=== PATIENT | female | born 1960 | race Asian ===

== ENCOUNTER → 2016-12-08 | Outpatient (CLI) | payer BC ==
[~2016-12-08] MED LIST: ACET-2178 PO; ALBU18HF2 IH; LOSA1TAB34 PO; LOVA40TA73 PO; METF500T PO; METF500T4 PO
[2016-12-08 06:52] LABS: BASOPHILS % 1.2 % (0.0-2.0); EOSINOPHILS % 9.9 % (0.0-5.0); LYMPHOCYTES % 21.1 % (20.0-50.0); MEAN CORPUSCULAR HEMOGLOBIN 27.2 pg (28.0-32.0); MEAN CORPUSCULAR VOLUME 81.7 fL (81.0-99.0); MEAN PLATELET VOLUME 7.9 fl (7.4-10.4); MONOCYTES % 10.6 % (2.0-8.0); NEUTROPHILS % 57.2 % (40.0-76.0); PLATELET 278 x1000/uL (130-400); RED BLOOD CELL COUNT 5.15 mill/uL (4.2-5.4); RED CELL DISTRIBUTION WIDTH 15.1 % (11.6-14.6)
[2016-12-08 07:03] LABS: CARBON DIOXIDE 30 mEq/L (21-32); CHLORIDE 105 mEq/L (98-107); HDL CHOLESTEROL 37 mg/dL (40-59); LDL CHOLESTEROL 103 mg/dL (5-100); T4 FREE 1.14 ng/dL (0.76-1.46)
[2016-12-09 13:11] LABS: *CREATININE RANDOM URINE 100.3 mg/dL (Not Estab.); MICROALBUMIN RANDOM URINE 46.6 ug/mL (Not Estab.)
== END | disposition home or self-care (01) ==
LOC: LAB 06:02
PROVIDERS: ATTEND Family Medicine
DX: Z00.01 Encounter for general adult medical examination with abnormal findings (principal); R79.89 Other specified abnormal findings of blood chemistry
CPT/HCPCS: 36415; 80053; 80061; 82043; 82570; 83036; 84439; 84443; 84481; 85025; 85651

== ENCOUNTER → 2016-12-29 | Outpatient (CLI) | payer BC | END | disposition home or self-care (01) | LOC: US 13:06 | PROVIDERS: ATTEND Family Medicine | DX: R59.1 Generalized enlarged lymph nodes (principal) | CPT/HCPCS: 76536 ==

== ENCOUNTER → 2017-01-08 | Outpatient (CLI) | payer BC | END | disposition home or self-care (01) | LOC: MAMMO 08:14 | PROVIDERS: ATTEND Family Medicine | DX: Z12.31 Encounter for screening mammogram for malignant neoplasm of breast (principal) | CPT/HCPCS: G0202 ==

== ENCOUNTER 2017-02-26 11:25 | Inpatient (IN) | payer BC ==
[~2017-02-26] VITALS: Ht 160 cm; Wt 74.6 kg
[2017-02-26] VITALS (10 sets, daily range): BP systolic 128–175; BP diastolic 71–95
[~2017-02-26 11:25] MED LIST changes: -ACET-2178 PO; -ALBU18HF2 IH; +IOHEXOL-350 100 ML BOTTLE ONE; -LOSA1TAB34 PO; -LOVA40TA73 PO; -METF500T PO; -METF500T4 PO; +SODIUM CHLORIDE 0.9% 10ML VIAL ONE
[2017-02-26] MEDS ORDERED: NITROGLYCERIN 0.4MG TABLET SL SL ONE (11:45)
[2017-02-26] MEDS ORDERED: ASPIRIN 81MG TABLET PO ONE (11:45)
[2017-02-26 11:55] LABS: HEMATOCRIT. 41.5 % (36.0-48.0); HEMOGLOBIN. 13.9 g/dL (12.0-16.0); MEAN CORPUSCULAR HEMOGLOBIN 26.8 pg (28.0-32.0); MEAN CORPUSCULAR VOLUME 80.2 fL (81.0-99.0); MEAN PLATELET VOLUME 7.3 fl (7.4-10.4); PLATELET 420 x1000/uL (130-400); RED BLOOD CELL COUNT 5.17 mill/uL (4.2-5.4); RED CELL DISTRIBUTION WIDTH 14.8 % (11.6-14.6)
[2017-02-26 12:05] LABS: D-DIMER 0.95 mg/L FEU (<0.50); PROTHROMBIN TIME 10.6 sec (9.4-11.6)
[2017-02-26 12:06] LABS: CARBON DIOXIDE 29 mEq/L (21-32); CHLORIDE 100 mEq/L (98-107)
[2017-02-26 12:12] LABS: TROPONIN I < 0.02 ng/mL (0.00-0.04)
[2017-02-26 12:22] LABS: PLATELET ESTIMATE INCREASED
[2017-02-26] MEDS ORDERED: SODIUM CHLORIDE 0.9% 1,000 ML IV SCH (13:41)
[2017-02-26] MEDS ORDERED: LOVA40TA73 PO (16:14)
[2017-02-26] MEDS ORDERED: METF500T PO (16:14)
[2017-02-26] MEDS ORDERED: LOSA1TAB34 PO (16:14)
[2017-02-26] MEDS ORDERED: DOCUSATE SODIUM 100MG CAPSULE PO PRN (16:15)
[2017-02-26] MEDS ORDERED: IPRATROPIUM/ALBUTEROL 0.5-3(2.5)MG/3ML NEB INH PRN (16:15)
[2017-02-26] MEDS ORDERED: ONDANSETRON HCL 4MG/2ML VIAL IV PRN (16:15)
[2017-02-26] MEDS: BLOOD SUGAR DIAGNOSTIC STRIP TEST SCH ×2 (16:45→21:10)
[2017-02-26] MEDS: INSULIN LISPRO 100 UNITS/ML SUBCUT SCH ×2 (16:45→21:00)
[2017-02-26] MEDS ORDERED: DEXTROSE 50% WATER 50ML SYRINGE IV PRN (16:45)
[2017-02-27] VITALS (20 sets, daily range): BP systolic 111–163; BP diastolic 53–97
[2017-02-27] MEDS: BLOOD SUGAR DIAGNOSTIC STRIP TEST SCH ×4 (05:52→22:00)
[2017-02-27] MEDS ORDERED: NORMAL SALINE 0.9% 10 ML SYR ONE (06:47)
[2017-02-27] MEDS ORDERED: BUPIVACAINE HCL 0.5% (5MG/ML) 50ML ONE (06:47)
[2017-02-27] MEDS ORDERED: BACITRACIN ZINC 15GM TUBE TOP ONE (06:47)
[2017-02-27] MEDS ORDERED: SKIN ADHESIVE 0.7 GM EA TOP ONE (06:48)
[2017-02-27] MEDS ORDERED: BACITRACIN 50,000 UNITS/VIAL ONE (06:48)
[2017-02-27] MEDS: INSULIN LISPRO 100 UNITS/ML SUBCUT SCH ×5 (06:53→22:02)
[2017-02-27] MEDS ORDERED: MIDAZOLAM HCL 2 MG/2 ML VIAL ONE (07:17)
[2017-02-27 07:19] LABS: CARBON DIOXIDE 28 mEq/L (21-32); CHLORIDE 104 mEq/L (98-107); HDL CHOLESTEROL 37 mg/dL (40-59); LDL CHOLESTEROL 78 mg/dL (5-100)
[2017-02-27] MEDS ORDERED: PROPOFOL 200MG/20ML VIAL IV ONE (07:19)
[2017-02-27] MEDS ORDERED: LIDOCAINE HCL 1% 20ML VIAL (Pyxis) INJ ONE (07:19)
[2017-02-27 07:24] LABS: HEMOGLOBIN. 12.1 g/dL (12.0-16.0); MEAN CORPUSCULAR HEMOGLOBIN 27.1 pg (28.0-32.0); MEAN CORPUSCULAR VOLUME 80.4 fL (81.0-99.0); MEAN PLATELET VOLUME 7.4 fl (7.4-10.4); PLATELET 349 x1000/uL (130-400); RED BLOOD CELL COUNT 4.48 mill/uL (4.2-5.4); RED CELL DISTRIBUTION WIDTH 14.7 % (11.6-14.6)
[2017-02-27] MEDS ORDERED: FENTANYL CITRATE/PF 50MCG/ML 2ML VIAL ONE (07:25)
[2017-02-27] MEDS ORDERED: CEFAZOLIN SODIUM 1000MG/VIAL ONE (07:28)
[2017-02-27] MEDS ORDERED: MORPHINE SULFATE 4 MG/ML CPJ (NOT FOR IM USE) IV PRN ×2 (07:30)
[2017-02-27] MEDS ORDERED: HYDROCODONE/ACETAMINOPHEN 5/325MG TABLET PO PRN ×2 (07:30)
[2017-02-27] MEDS ORDERED: SODIUM CHLORIDE 0.9% 1,000 ML IV SCH (07:35)
[2017-02-27] MEDS ORDERED: ONDANSETRON HCL 4MG/2ML VIAL IV PRN (07:45)
[2017-02-27] MEDS ORDERED: MORPHINE SULFATE 2 MG/ML CPJ (NOT FOR IM USE) IV PRN (07:45)
[2017-02-27] MEDS ORDERED: DEXT 5%/0.45% NACL KCL 20MEQ/L 1,000 ML IV SCH (09:00)
[2017-02-27] MEDS ORDERED: ENOXAPARIN 40MG/0.4ML SYR SUBCUT SCH (09:00)
[2017-02-27] MEDS: SODIUM CHLORIDE 0.9% INJ 3ML FLUSH IVF SCH ×2 (13:54→22:02)
[2017-02-27 14:30] LABS: PLATELET ESTIMATE NORMAL
[2017-02-27] MEDS: ACETAMINOPHEN 325MG TABLET PO PRN (22:06)
[2017-02-28] VITALS (14 sets, daily range): BP systolic 108–164; BP diastolic 43–91
[2017-02-28] MEDS: SODIUM CHLORIDE 0.9% INJ 3ML FLUSH IVF SCH ×3 (06:04→21:23)
[2017-02-28] MEDS: BLOOD SUGAR DIAGNOSTIC STRIP TEST SCH ×4 (06:05→20:34)
[2017-02-28] MEDS: INSULIN LISPRO 100 UNITS/ML SUBCUT SCH ×4 (07:20→20:35)
[2017-02-28] MEDS ORDERED: CLONIDINE 0.1MG TABLET PO PRN (22:45)
[2017-02-28] MEDS ORDERED: MEDICATION NOT ON FORMULARY EA (Lovastatin 1 TAB) PO SCH (23:00)
[2017-02-28] MEDS ORDERED: MEDICATION NOT ON FORMULARY EA (Losartan/Hydrochlorothiazide (Losartan-Hctz 50-12.5 Mg T PO SCH (23:00)
[2017-03-01] VITALS (12 sets, daily range): BP systolic 121–167; BP diastolic 69–91
[2017-03-01] MEDS: BLOOD SUGAR DIAGNOSTIC STRIP TEST SCH ×4 (06:25→20:01)
[2017-03-01] MEDS: SODIUM CHLORIDE 0.9% INJ 3ML FLUSH IVF SCH ×3 (06:32→22:00)
[2017-03-01] MEDS: INSULIN LISPRO 100 UNITS/ML SUBCUT SCH ×4 (07:20→20:20)
[2017-03-01] MEDS ORDERED: LOSARTAN POTASSIUM 50 MG TABLET PO SCH ×2 (09:00→11:30)
[2017-03-01] MEDS ORDERED: HYDROCHLOROTHIAZIDE 12.5MG CAPSULE PO SCH ×2 (09:00→11:30)
[2017-03-01] MEDS: HYDROCHLOROTHIAZIDE PO SCH (13:28)
[2017-03-01] MEDS: LOSARTAN PO SCH (13:28)
[2017-03-01] MEDS: LOVASTATIN 40 MG PO SCH (20:00)
[2017-03-01] MEDS ORDERED: ATORVASTATIN CALCIUM 10MG TABLET PO SCH (21:00)
[2017-03-02] VITALS (12 sets, daily range): BP systolic 102–165; BP diastolic 45–92
[2017-03-02] MEDS: BLOOD SUGAR DIAGNOSTIC STRIP TEST SCH ×4 (06:30→20:18)
[2017-03-02] MEDS: SODIUM CHLORIDE 0.9% INJ 3ML FLUSH IVF SCH ×3 (06:31→22:00)
[2017-03-02] MEDS: INSULIN LISPRO 100 UNITS/ML SUBCUT SCH ×4 (06:41→20:22)
[2017-03-02] MEDS: LOSARTAN PO SCH (08:42)
[2017-03-02] MEDS: HYDROCHLOROTHIAZIDE PO SCH (08:42)
[2017-03-02 13:26] LABS: HEMATOCRIT 36.1 % (36.0-48.0); HEMOGLOBIN 11.9 g/dL (12.0-16.0); MEAN CORPUSCULAR HEMOGLOBIN 26.5 pg (28.0-32.0); MEAN CORPUSCULAR VOLUME 80.1 fL (81.0-99.0); PLATELET 307 x1000/uL (130-400); RED BLOOD CELL COUNT 4.51 mill/uL (4.2-5.4); RED CELL DISTRIBUTION WIDTH 14.8 % (11.6-14.6)
[2017-03-02] MEDS: LOVASTATIN 40 MG PO SCH (20:18)
[2017-03-02] MEDS: GUAIFENESIN 200MG/10ML SUGAR FREE UDC PO PRN (20:18)
[2017-03-03] VITALS (12 sets, daily range): BP systolic 107–152; BP diastolic 47–96
[2017-03-03] MEDS: BLOOD SUGAR DIAGNOSTIC STRIP TEST SCH ×4 (06:50→21:00)
[2017-03-03] MEDS: INSULIN LISPRO 100 UNITS/ML SUBCUT SCH ×4 (06:50→21:00)
[2017-03-03] MEDS: SODIUM CHLORIDE 0.9% INJ 3ML FLUSH IVF SCH ×3 (06:50→22:22)
[2017-03-03] MEDS: HYDROCHLOROTHIAZIDE PO SCH (08:23)
[2017-03-03] MEDS: LOSARTAN PO SCH (08:23)
[2017-03-03] MEDS: ACETAMINOPHEN 325MG TABLET PO PRN (11:14)
[2017-03-03] MEDS: GUAIFENESIN 200MG/10ML SUGAR FREE UDC PO PRN ×2 (14:32→22:22)
[2017-03-03] MEDS: LOVASTATIN 40 MG PO SCH (22:03)
[2017-03-04] VITALS (9 sets, daily range): BP systolic 103–124; BP diastolic 56–93
[2017-03-04] MEDS: SODIUM CHLORIDE 0.9% INJ 3ML FLUSH IVF SCH ×2 (05:39→14:16)
[2017-03-04] MEDS: BLOOD SUGAR DIAGNOSTIC STRIP TEST SCH ×2 (05:39→11:25)
[2017-03-04] MEDS: INSULIN LISPRO 100 UNITS/ML SUBCUT SCH ×2 (05:39→11:25)
[2017-03-04] MEDS: HYDROCHLOROTHIAZIDE PO SCH (08:09)
[2017-03-04] MEDS: LOSARTAN PO SCH (08:09)
[2017-03-04] MEDS ORDERED: INFLUENZA VIRUS VACCINE 0.5ML SYR IM ONE (09:00)
[2017-03-04] MEDS: GUAIFENESIN 200MG/10ML SUGAR FREE UDC PO PRN (10:24)
[2017-03-04] MEDS: ACETAMINOPHEN 325MG TABLET PO PRN (10:24)
== END 2017-03-04 16:15 | disposition home or self-care (01) | DRG 987 ==
LOC: ER 11:27 → 3WST 13:42 → ENRESERV 14:50
PROVIDERS: ADMIT Hospitalist; ATTEND Hospitalist
PROC: 07BH0ZX Excision of Right Inguinal Lymphatic, Open Approach, Diagnostic (ICD-10-PCS; principal; 2017-02-27 07:00)
PROC: 0W9B3ZZ Drainage of Left Pleural Cavity, Percutaneous Approach (ICD-10-PCS; 2017-03-02)
DX: J90 Pleural effusion, not elsewhere classified (principal); J96.00 Acute respiratory failure, unspecified whether with hypoxia or hypercapnia; C83.30 Diffuse large B-cell lymphoma, unspecified site; J98.11 Atelectasis; I10 Essential (primary) hypertension; E11.9 Type 2 diabetes mellitus without complications; R59.0 Localized enlarged lymph nodes; E78.5 Hyperlipidemia, unspecified; Z79.899 Other long term (current) drug therapy
CPT/HCPCS: 32555; 36415; 71010; 71275; 80053; 80061; 82040; 82962; 83615; 83880; 84157; 84484; 85025; 85027; 85379; 85610; 87070; 87205; 88108; 88305; 88312; 90686; 93005; 93970; 94664; 96360; 99285; A4216; J0690; J2250; J2270; J2405; J2704; J3010; J3490; J7030; J7620; Q9967

== ENCOUNTER → 2017-03-24 | Outpatient (CLI) | payer BC ==
[~2017-03-24] MED LIST changes: +ACET-2178 PO; +ALBU18HF2 IH; -IOHEXOL-350 100 ML BOTTLE ONE; +LIDOCAINE HCL 1% 20ML VIAL (Pyxis) INJ ONE; +LOSA1TAB34 PO; +LOVA40TA73 PO; +METF500T PO; +METF500T4 PO; +MIDAZOLAM HCL 2 MG/2 ML VIAL ONE; +PROPOFOL 200MG/20ML VIAL IV ONE; -SODIUM CHLORIDE 0.9% 10ML VIAL ONE
== END | disposition home or self-care (01) ==
LOC: CARD 09:42
PROVIDERS: ATTEND Internal Medicine Hematology & Oncology
DX: C83.33 Diffuse large B-cell lymphoma, intra-abdominal lymph nodes (principal)
CPT/HCPCS: 93306; J2250; J2704; J3490

== ENCOUNTER 2017-03-25 07:54 | Inpatient (IN) | payer BC ==
[~2017-03-25] VITALS: Ht 160 cm; Wt 72.6 kg
[~2017-03-25 07:54] MED LIST changes: -ACET-2178 PO; -ALBU18HF2 IH; -LIDOCAINE HCL 1% 20ML VIAL (Pyxis) INJ ONE; -METF500T4 PO; -MIDAZOLAM HCL 2 MG/2 ML VIAL ONE; -PROPOFOL 200MG/20ML VIAL IV ONE
[2017-03-25 09:39] LABS: HEMATOCRIT. 39.3 % (36.0-48.0); HEMOGLOBIN. 12.8 g/dL (12.0-16.0); MEAN CORPUSCULAR HEMOGLOBIN 25.9 pg (28.0-32.0); MEAN CORPUSCULAR VOLUME 79.6 fL (81.0-99.0); MEAN PLATELET VOLUME 7.4 fl (7.4-10.4); PLATELET 325 x1000/uL (130-400); RED BLOOD CELL COUNT 4.94 mill/uL (4.2-5.4); RED CELL DISTRIBUTION WIDTH 15.8 % (11.6-14.6)
[2017-03-25] MEDS ORDERED: SODIUM CHLORIDE 0.9% 1,000 ML IV SCH (09:55)
[2017-03-25 11:27] LABS: PLATELET ESTIMATE NORMAL
[2017-03-25] MEDS ORDERED: IPRATROPIUM/ALBUTEROL 0.5-3(2.5)MG/3ML NEB INH PRN (11:30)
[2017-03-25] MEDS ORDERED: ACETAMINOPHEN 325MG TABLET PO PRN (11:30)
[2017-03-25] MEDS ORDERED: ONDANSETRON HCL 4MG/2ML VIAL IV PRN (11:30)
[2017-03-25] MEDS ORDERED: DOCUSATE SODIUM 100MG CAPSULE PO PRN (11:30)
[2017-03-25 11:38] LABS: BG BASE EXCESS 0.5 mmol/L (-2.0-2.0); BG CARBOXYHEMOGLOBIN 0.8 % (0.5-1.5); BG DEOXYHEMOGLOBIN 2.4 % (0.0-5.0); BG FRACTION INSPIRED OXYGEN 28; BG METHEMOGLOBIN 0.2 % (0.0-1.5); BG OXYGEN SATURATION 97.6 % (92.0-98.5); BG OXYHEMOGLOBIN 96.6 % (94.0-97.0); BG PH 7.414 (7.350-7.450); BG PO2 98.9 mmHg (75.0-100.0); BG SAMPLE SITE RIGHT BRACHIAL; BG TOTAL HEMOGLOBIN 14.1 g/dL (12.0-18.0); BG VENT MODE NASAL CANNULA
[2017-03-25 11:38] LABS: INR 1.1; PARTIAL THROMBOPLASTIN TIME 28.7 sec (23.4-31.0); PROTHROMBIN TIME 10.9 sec (9.4-11.6)
[2017-03-25 12:30] VITALS: BP 115/60
[2017-03-25] MEDS ORDERED: DEXTROSE 50% WATER 50ML SYRINGE IV PRN (12:30)
[2017-03-25] MEDS: BLOOD SUGAR DIAGNOSTIC STRIP TEST SCH ×3 (12:40→21:11)
[2017-03-25] MEDS ORDERED: LOSA1TAB34 PO (12:43)
[2017-03-25] MEDS ORDERED: ACET-2178 PO (12:43)
[2017-03-25] MEDS ORDERED: METF500T4 PO (12:43)
[2017-03-25] MEDS ORDERED: LOVA40TA73 PO (12:43)
[2017-03-25] MEDS: INSULIN LISPRO 100 UNITS/ML SUBCUT SCH ×3 (13:10→21:00)
[2017-03-25] MEDS ORDERED: SODIUM BICARBONATE 4% (2.4MEQ) 5ML VIAL IV ONE (13:44)
[2017-03-25] MEDS: IPRATROPIUM/ALBUTEROL 0.5-3(2.5)MG/3ML NEB HHN SCH ×2 (15:39→20:29)
[2017-03-25 16:00] VITALS: BP 104/43
[2017-03-25] MEDS ORDERED: MORPHINE SULFATE 2 MG/ML CPJ (NOT FOR IM USE) IV PRN (17:00)
[2017-03-25] MEDS: GUAIFENESIN 200MG/10ML SUGAR FREE UDC PO PRN ×2 (17:11→21:13)
[2017-03-25] MEDS: HYDROCODONE/ACETAMINOPHEN 5/325MG TABLET PO PRN (17:11)
[2017-03-25 20:00] VITALS: BP 99/51
[2017-03-26] VITALS: BP 102/40
[2017-03-26] MEDS: IPRATROPIUM/ALBUTEROL 0.5-3(2.5)MG/3ML NEB HHN SCH ×3 (02:00→20:15)
[2017-03-26 04:00] VITALS: BP 93/59
[2017-03-26] MEDS: GUAIFENESIN 200MG/10ML SUGAR FREE UDC PO PRN (06:33)
[2017-03-26] MEDS: BLOOD SUGAR DIAGNOSTIC STRIP TEST SCH ×4 (06:36→21:27)
[2017-03-26 06:55] LABS: HEMATOCRIT. 37.1 % (36.0-48.0); HEMOGLOBIN. 12.6 g/dL (12.0-16.0); MEAN CORPUSCULAR HEMOGLOBIN 26.9 pg (28.0-32.0); MEAN CORPUSCULAR VOLUME 79.7 fL (81.0-99.0); MEAN PLATELET VOLUME 7.8 fl (7.4-10.4); PLATELET 280 x1000/uL (130-400); RED BLOOD CELL COUNT 4.66 mill/uL (4.2-5.4); RED CELL DISTRIBUTION WIDTH 15.5 % (11.6-14.6)
[2017-03-26 07:33] LABS: CARBON DIOXIDE 29 mEq/L (21-32); CHLORIDE 100 mEq/L (98-107)
[2017-03-26 08:00] VITALS: BP 115/62
[2017-03-26] MEDS: INSULIN LISPRO 100 UNITS/ML SUBCUT SCH ×4 (08:10→21:00)
[2017-03-26] MEDS ORDERED: LIDOCAINE HCL 1% 20ML VIAL (Pyxis) INJ ONE (08:49)
[2017-03-26] MEDS ORDERED: SODIUM CHLORIDE 0.9% 1,000 ML IV SCH (09:13)
[2017-03-26] MEDS ORDERED: ONDANSETRON HCL 4MG/2ML VIAL IV PRN (09:15)
[2017-03-26] MEDS ORDERED: MORPHINE SULFATE 2 MG/ML CPJ (NOT FOR IM USE) IV PRN (09:15)
[2017-03-26] MEDS: METFORMIN HCL 500MG TABLET PO SCH (11:29)
[2017-03-26] MEDS: LOSARTAN POTASSIUM 50 MG TABLET PO SCH (11:29)
[2017-03-26] MEDS: POTASSIUM CHLORIDE 20MEQ TABLET SR PO NR (11:30)
[2017-03-26] MEDS: HYDROCHLOROTHIAZIDE 12.5MG CAPSULE PO SCH (11:30)
[2017-03-26] MEDS: HYDROCODONE/ACETAMINOPHEN 5/325MG TABLET PO PRN ×2 (11:37→21:23)
[2017-03-26 12:00] VITALS: BP 110/68
[2017-03-26 15:57] VITALS: BP 107/65
[2017-03-26 17:51] LABS: PLATELET ESTIMATE NORMAL
[2017-03-26 20:00] VITALS: BP 106/43
[2017-03-27] VITALS: BP 112/58
[2017-03-27] MEDS: IPRATROPIUM/ALBUTEROL 0.5-3(2.5)MG/3ML NEB HHN SCH ×4 (01:32→20:18)
[2017-03-27 04:00] VITALS: BP 99/40
[2017-03-27] MEDS: BLOOD SUGAR DIAGNOSTIC STRIP TEST SCH ×4 (07:40→20:05)
[2017-03-27 08:00] VITALS: BP 109/60
[2017-03-27] MEDS: INSULIN LISPRO 100 UNITS/ML SUBCUT SCH ×4 (08:10→20:05)
[2017-03-27] MEDS: ALLOPURINOL 300 MG TABLET PO SCH (09:00)
[2017-03-27] MEDS: METFORMIN HCL 500MG TABLET PO SCH (09:00)
[2017-03-27] MEDS: HYDROCHLOROTHIAZIDE 12.5MG CAPSULE PO SCH (09:00)
[2017-03-27] MEDS: LOSARTAN POTASSIUM 50 MG TABLET PO SCH (09:00)
[2017-03-27] MEDS: POTASSIUM CHLORIDE 20MEQ TABLET SR PO NR (09:43)
[2017-03-27 12:00] VITALS: BP 107/58
[2017-03-27 13:21] LABS: HEMATOCRIT. 36.1 % (36.0-48.0); MEAN CORPUSCULAR HEMOGLOBIN 26.5 pg (28.0-32.0); MEAN CORPUSCULAR VOLUME 79.6 fL (81.0-99.0); MEAN PLATELET VOLUME 7.6 fl (7.4-10.4); PLATELET 264 x1000/uL (130-400); RED BLOOD CELL COUNT 4.53 mill/uL (4.2-5.4); RED CELL DISTRIBUTION WIDTH 15.4 % (11.6-14.6)
[2017-03-27] MEDS: POLYVINYL ALCOHOL OPHTH DROPS 15ML EACHEYE PRN ×2 (13:34→19:46)
[2017-03-27] MEDS: HYDROCODONE/ACETAMINOPHEN 5/325MG TABLET PO PRN ×2 (13:35→19:39)
[2017-03-27 13:37] LABS: CARBON DIOXIDE 28 mEq/L (21-32); CHLORIDE 101 mEq/L (98-107)
[2017-03-27] MEDS ORDERED: POTASSIUM CHLORIDE 20MEQ TABLET SR PO NR (14:24)
[2017-03-27 16:00] VITALS: BP 112/57
[2017-03-27 20:00] VITALS: BP 125/68
[2017-03-28] VITALS (7 sets, daily range): BP systolic 106–144; BP diastolic 57–80
[2017-03-28] MEDS: IPRATROPIUM/ALBUTEROL 0.5-3(2.5)MG/3ML NEB HHN SCH ×4 (02:25→21:08)
[2017-03-28 06:10] LABS: PLATELET ESTIMATE NORMAL
[2017-03-28 06:16] LABS: HEMATOCRIT. 35.9 % (36.0-48.0); HEMOGLOBIN. 11.9 g/dL (12.0-16.0); MEAN CORPUSCULAR HEMOGLOBIN 26.4 pg (28.0-32.0); MEAN CORPUSCULAR VOLUME 79.7 fL (81.0-99.0); MEAN PLATELET VOLUME 7.8 fl (7.4-10.4); PLATELET 249 x1000/uL (130-400); RED CELL DISTRIBUTION WIDTH 15.7 % (11.6-14.6)
[2017-03-28 06:27] LABS: CARBON DIOXIDE 27 mEq/L (21-32); CHLORIDE 103 mEq/L (98-107)
[2017-03-28] MEDS: INSULIN LISPRO 100 UNITS/ML SUBCUT SCH ×4 (07:07→21:00)
[2017-03-28] MEDS: BLOOD SUGAR DIAGNOSTIC STRIP TEST SCH ×4 (07:07→21:06)
[2017-03-28] MEDS: HYDROCHLOROTHIAZIDE 12.5MG CAPSULE PO SCH (08:12)
[2017-03-28] MEDS: ALLOPURINOL 300 MG TABLET PO SCH (08:12)
[2017-03-28] MEDS: LOSARTAN POTASSIUM 50 MG TABLET PO SCH (08:12)
[2017-03-28] MEDS: POLYVINYL ALCOHOL OPHTH DROPS 15ML EACHEYE PRN ×2 (09:02→19:51)
[2017-03-28] MEDS: METFORMIN HCL 500MG TABLET PO SCH (09:02)
[2017-03-28 11:17] LABS: PLATELET ESTIMATE NORMAL
[2017-03-28 13:00] LABS: INR 1.1; PARTIAL THROMBOPLASTIN TIME 29.4 sec (23.4-31.0); PROTHROMBIN TIME 11.1 sec (9.4-11.6)
[2017-03-29] MEDS: IPRATROPIUM/ALBUTEROL 0.5-3(2.5)MG/3ML NEB HHN SCH ×4 (03:06→21:34)
[2017-03-29 03:59] VITALS: BP 112/57
[2017-03-29] MEDS: BLOOD SUGAR DIAGNOSTIC STRIP TEST SCH ×4 (06:09→20:58)
[2017-03-29 06:52] LABS: PARTIAL THROMBOPLASTIN TIME 29.6 sec (23.4-31.0); PROTHROMBIN TIME 10.5 sec (9.4-11.6)
[2017-03-29] MEDS: INSULIN LISPRO 100 UNITS/ML SUBCUT SCH ×4 (07:14→20:58)
[2017-03-29 08:00] VITALS: BP 135/76
[2017-03-29] MEDS: METFORMIN HCL 500MG TABLET PO SCH (09:42)
[2017-03-29] MEDS: LOSARTAN POTASSIUM 50 MG TABLET PO SCH (09:42)
[2017-03-29] MEDS: HYDROCODONE/ACETAMINOPHEN 5/325MG TABLET PO PRN ×2 (09:42→20:02)
[2017-03-29] MEDS: HYDROCHLOROTHIAZIDE 12.5MG CAPSULE PO SCH (09:42)
[2017-03-29] MEDS: ALLOPURINOL 300 MG TABLET PO SCH (09:43)
[2017-03-29 12:00] VITALS: BP 128/54
[2017-03-29 16:00] VITALS: BP 99/57
[2017-03-29 20:00] VITALS: BP 144/63
[2017-03-30] VITALS: BP 112/55
[2017-03-30] MEDS: GUAIFENESIN 200MG/10ML SUGAR FREE UDC PO PRN (03:05)
[2017-03-30] MEDS: IPRATROPIUM/ALBUTEROL 0.5-3(2.5)MG/3ML NEB HHN SCH ×4 (03:06→21:21)
[2017-03-30 04:00] VITALS: BP 126/62
[2017-03-30] MEDS: BLOOD SUGAR DIAGNOSTIC STRIP TEST SCH ×4 (05:29→20:48)
[2017-03-30] MEDS: INSULIN LISPRO 100 UNITS/ML SUBCUT SCH ×4 (07:30→21:00)
[2017-03-30 08:00] VITALS: BP 130/69
[2017-03-30] MEDS: LOSARTAN POTASSIUM 50 MG TABLET PO SCH (09:00)
[2017-03-30] MEDS: ALLOPURINOL 300 MG TABLET PO SCH (09:00)
[2017-03-30] MEDS: HYDROCHLOROTHIAZIDE 12.5MG CAPSULE PO SCH (09:00)
[2017-03-30] MEDS: METFORMIN HCL 500MG TABLET PO SCH (11:02)
[2017-03-30] MEDS: POLYVINYL ALCOHOL OPHTH DROPS 15ML EACHEYE PRN ×2 (11:26→20:55)
[2017-03-30 12:00] VITALS: BP 121/67
[2017-03-30 16:00] VITALS: BP 115/46
[2017-03-30 20:00] VITALS: BP 124/64
[2017-03-31] VITALS: BP 132/69
[2017-03-31 04:00] VITALS: BP 122/59
[2017-03-31] MEDS: BLOOD SUGAR DIAGNOSTIC STRIP TEST SCH ×2 (06:12→12:40)
[2017-03-31] MEDS: INSULIN LISPRO 100 UNITS/ML SUBCUT SCH ×2 (07:29→13:10)
[2017-03-31 08:00] VITALS: BP 132/71
[2017-03-31] MEDS: IPRATROPIUM/ALBUTEROL 0.5-3(2.5)MG/3ML NEB HHN SCH ×2 (08:05→14:56)
[2017-03-31] MEDS: METFORMIN HCL 500MG TABLET PO SCH (08:45)
[2017-03-31] MEDS: HYDROCHLOROTHIAZIDE 12.5MG CAPSULE PO SCH (08:45)
[2017-03-31] MEDS: ALLOPURINOL 300 MG TABLET PO SCH (08:45)
[2017-03-31] MEDS: LOSARTAN POTASSIUM 50 MG TABLET PO SCH (08:45)
[2017-03-31 12:00] VITALS: BP 126/63
[2017-03-31] MEDS ORDERED: ALBU18HF2 IH (13:02)
[2017-03-31 13:55] VITALS: BP 126/63
== END 2017-03-31 15:51 | disposition home or self-care (01) | DRG 840 ==
LOC: OR 07:54 → 7WST 07:56
PROVIDERS: ADMIT Internal Medicine Critical Care Medicine; ATTEND Internal Medicine Critical Care Medicine
PROC: 07DQ3ZX Extraction of Sternum Bone Marrow, Percutaneous Approach, Diagnostic (ICD-10-PCS; principal; 2017-03-25)
PROC: 0W9B4ZX Drainage of Left Pleural Cavity, Percutaneous Endoscopic Approach, Diagnostic (ICD-10-PCS; 2017-03-25)
PROC: 0W9B3ZZ Drainage of Left Pleural Cavity, Percutaneous Approach (ICD-10-PCS; 2017-03-25)
PROC: 02H633Z Insertion of Infusion Device into Right Atrium, Percutaneous Approach (ICD-10-PCS; 2017-03-27)
PROC: B2141ZZ Fluoroscopy of Right Heart using Low Osmolar Contrast (ICD-10-PCS; 2017-03-27)
PROC: 0W9B3ZZ Drainage of Left Pleural Cavity, Percutaneous Approach (ICD-10-PCS; 2017-03-29)
DX: C85.10 Unspecified B-cell lymphoma, unspecified site (principal); J96.01 Acute respiratory failure with hypoxia; J90 Pleural effusion, not elsewhere classified; J94.8 Other specified pleural conditions; I10 Essential (primary) hypertension; E87.6 Hypokalemia; E11.9 Type 2 diabetes mellitus without complications; E78.5 Hyperlipidemia, unspecified
CPT/HCPCS: 32555; 36415; 36569; 36600; 38220; 71010; 71020; 71250; 76937; 80048; 80061; 82375; 82465; 82805; 82945; 82962; 83615; 83735; 84157; 84550; 85025; 85049; 85060; 85097; 85610; 85730; 87070; 87205; 88108; 88312; 88313; 89050; 94620; 94640; 94664; C1725; J1815; J2270; J3490; J7030; J7620

== ENCOUNTER → 2017-04-20 | Outpatient (CLI) | payer BC ==
[~2017-04-20] MED LIST changes: +ACET-2178 PO; +ALBU18HF2 IH; +METF500T4 PO
[2017-04-20 07:20] LABS: HEMATOCRIT. 40.6 % (36.0-48.0); HEMOGLOBIN. 13.5 g/dL (12.0-16.0); MEAN CORPUSCULAR HEMOGLOBIN 26.3 pg (28.0-32.0); MEAN CORPUSCULAR VOLUME 79.1 fL (81.0-99.0); PLATELET 421 x1000/uL (130-400); RED BLOOD CELL COUNT 5.13 mill/uL (4.2-5.4); RED CELL DISTRIBUTION WIDTH 15.7 % (11.6-14.6)
[2017-04-20 07:43] LABS: CARBON DIOXIDE 33 mEq/L (21-32); CHLORIDE 102 mEq/L (98-107)
[2017-04-20 11:19] LABS: PLATELET ESTIMATE INCREASED
== END | disposition home or self-care (01) ==
LOC: LAB 06:53
PROVIDERS: ATTEND Internal Medicine Hematology & Oncology
DX: C83.33 Diffuse large B-cell lymphoma, intra-abdominal lymph nodes (principal); I10 Essential (primary) hypertension; E11.9 Type 2 diabetes mellitus without complications
CPT/HCPCS: 36415; 80053; 85025

== ENCOUNTER → 2017-05-11 | Outpatient (CLI) | payer BC ==
[2017-05-11 07:55] LABS: HEMATOCRIT. 38.7 % (36.0-48.0); HEMOGLOBIN. 12.4 g/dL (12.0-16.0); MEAN CORPUSCULAR HEMOGLOBIN 25.4 pg (28.0-32.0); MEAN CORPUSCULAR VOLUME 79.6 fL (81.0-99.0); MEAN PLATELET VOLUME 7.3 fl (7.4-10.4); PLATELET 294 x1000/uL (130-400); RED BLOOD CELL COUNT 4.86 mill/uL (4.2-5.4); RED CELL DISTRIBUTION WIDTH 17.2 % (11.6-14.6)
[2017-05-11 08:55] LABS: CARBON DIOXIDE 31 mEq/L (21-32); CHLORIDE 105 mEq/L (98-107)
[2017-05-11 14:05] LABS: PLATELET ESTIMATE NORMAL
== END | disposition home or self-care (01) ==
LOC: LAB 07:31
PROVIDERS: ATTEND Internal Medicine Hematology & Oncology
DX: C83.33 Diffuse large B-cell lymphoma, intra-abdominal lymph nodes (principal)
CPT/HCPCS: 36415; 80053; 85025

== ENCOUNTER → 2017-06-09 | Outpatient (CLI) | payer BC ==
[2017-06-09 17:45] LABS: BASOPHILS % 1.3 % (0.0-2.0); HEMATOCRIT. 37.1 % (36.0-48.0); HEMOGLOBIN. 12.1 g/dL (12.0-16.0); LYMPHOCYTES % 13.5 % (20.0-50.0); MEAN CORPUSCULAR HEMOGLOBIN 26.1 pg (28.0-32.0); MEAN CORPUSCULAR VOLUME 79.8 fL (81.0-99.0); MONOCYTES % 14.8 % (2.0-8.0); NEUTROPHILS % 67.4 % (40.0-76.0); PLATELET 352 x1000/uL (130-400); RED BLOOD CELL COUNT 4.65 mill/uL (4.2-5.4); RED CELL DISTRIBUTION WIDTH 20.1 % (11.6-14.6)
[2017-06-09 17:52] LABS: CARBON DIOXIDE 34 mEq/L (21-32); CHLORIDE 101 mEq/L (98-107)
== END | disposition home or self-care (01) ==
LOC: LAB 16:19
PROVIDERS: ATTEND Internal Medicine Hematology & Oncology
DX: C83.33 Diffuse large B-cell lymphoma, intra-abdominal lymph nodes (principal)
CPT/HCPCS: 36415; 80053; 85025

== ENCOUNTER → 2017-06-30 | Outpatient (CLI) | payer BC ==
[2017-06-30 09:57] LABS: HEMOGLOBIN. 12.7 g/dL (12.0-16.0); MEAN PLATELET VOLUME 7.1 fl (7.4-10.4); PLATELET 368 x1000/uL (130-400); RED CELL DISTRIBUTION WIDTH 20.5 % (11.6-14.6)
[2017-06-30 10:22] LABS: CARBON DIOXIDE 30 mEq/L (21-32); CHLORIDE 102 mEq/L (98-107)
[2017-06-30 14:13] LABS: PLATELET ESTIMATE NORMAL
== END | disposition home or self-care (01) ==
LOC: LAB 09:24
PROVIDERS: ATTEND Internal Medicine Hematology & Oncology
DX: C83.33 Diffuse large B-cell lymphoma, intra-abdominal lymph nodes (principal)
CPT/HCPCS: 36415; 80053; 85025

== ENCOUNTER → 2017-07-07 | Outpatient (CLI) | payer BC ==
[~2017-07-07] MED LIST changes: +METF-414 PO; -METF500T4 PO
== END | disposition home or self-care (01) ==
LOC: CARD 10:08 → EDSTATUS 10:39
PROVIDERS: ATTEND Internal Medicine Hematology & Oncology
DX: C83.33 Diffuse large B-cell lymphoma, intra-abdominal lymph nodes (principal)
CPT/HCPCS: 93306

== ENCOUNTER → 2017-07-13 | Outpatient (CLI) | payer BC ==
[2017-07-13 07:40] LABS: HEMATOCRIT. 35.9 % (36.0-48.0); HEMOGLOBIN. 11.8 g/dL (12.0-16.0); MEAN CORPUSCULAR HEMOGLOBIN 26.7 pg (28.0-32.0); MEAN CORPUSCULAR VOLUME 81.2 fL (81.0-99.0); MEAN PLATELET VOLUME 7.6 fl (7.4-10.4); PLATELET 224 x1000/uL (130-400); RED BLOOD CELL COUNT 4.42 mill/uL (4.2-5.4); RED CELL DISTRIBUTION WIDTH 20.3 % (11.6-14.6)
[2017-07-13 08:01] LABS: KETONES URINE NEGATIVE (NEGATIVE); LEUKOCYTE ESTERASE URINE 2+ (NEGATIVE); NITRITE URINE NEGATIVE (NEGATIVE); OCCULT BLOOD URINE 1+ (NEGATIVE); PH URINE 6.5 (4.5-8.0); PROTEIN URINE 1+ (NEGATIVE); SPECIFIC GRAVITY URINE 1.015 (1.005-1.030); UROBILINOGEN URINE 0.2 E.U./dL (0.2-1.0)
[2017-07-13 08:02] LABS: CLARITY URINE HAZY (CLEAR); COLOR URINE YELLOW (YELLOW)
[2017-07-13 08:30] LABS: FOLIC ACID (FOLATE) SERUM 16.5 ng/mL (>5.38)
[2017-07-13 08:34] LABS: CHLORIDE 105 mEq/L (98-107); HDL CHOLESTEROL 50 mg/dL (40-59); LDL CHOLESTEROL 124 mg/dL (5-100)
[2017-07-13 14:13] LABS: PLATELET ESTIMATE NORMAL
[2017-07-14 13:10] LABS: *CREATININE RANDOM URINE 112.1 mg/dL (Not Estab.); MICROALBUMIN RANDOM URINE 41.4 ug/mL (Not Estab.)
[2017-07-17 07:18] LABS: METHYLMALONIC ACID 190 nmol/L (0-378)
== END | disposition home or self-care (01) ==
LOC: LAB 07:00
PROVIDERS: ATTEND Internal Medicine Endocrinology, Diabetes & Metabolism
DX: E11.9 Type 2 diabetes mellitus without complications (principal); D64.9 Anemia, unspecified; E04.1 Nontoxic single thyroid nodule; E78.00 Pure hypercholesterolemia, unspecified
CPT/HCPCS: 36415; 80061; 81001; 82043; 82570; 82607; 82746; 83036; 83921; 84432; 84439; 84443; 86800; 87077; 87186

== ENCOUNTER → 2017-07-21 | Outpatient (CLI) | payer BC ==
[~2017-07-21] MED LIST changes: -METF-414 PO; +METF500T4 PO
[2017-07-21 09:22] LABS: HEMATOCRIT. 36.5 % (36.0-48.0); MEAN CORPUSCULAR HEMOGLOBIN 26.8 pg (28.0-32.0); MEAN CORPUSCULAR VOLUME 81.5 fL (81.0-99.0); MEAN PLATELET VOLUME 7.3 fl (7.4-10.4); PLATELET 332 x1000/uL (130-400); RED BLOOD CELL COUNT 4.48 mill/uL (4.2-5.4); RED CELL DISTRIBUTION WIDTH 19.9 % (11.6-14.6)
[2017-07-21 09:44] LABS: CHLORIDE 104 mEq/L (98-107)
[2017-07-21 17:12] LABS: PLATELET ESTIMATE NORMAL
== END | disposition home or self-care (01) ==
LOC: LAB 08:45
PROVIDERS: ATTEND Internal Medicine Hematology & Oncology
DX: C83.33 Diffuse large B-cell lymphoma, intra-abdominal lymph nodes (principal)
CPT/HCPCS: 36415; 80053; 85025

== ENCOUNTER → 2017-08-13 | Outpatient (CLI) | payer BC ==
[2017-08-13 09:33] LABS: MEAN CORPUSCULAR HEMOGLOBIN 27.4 pg (28.0-32.0); MEAN CORPUSCULAR VOLUME 82.4 fL (81.0-99.0); MEAN PLATELET VOLUME 7.3 fl (7.4-10.4); PLATELET 358 x1000/uL (130-400); RED BLOOD CELL COUNT 4.37 mill/uL (4.2-5.4)
[2017-08-13 10:29] LABS: CHLORIDE 104 mEq/L (98-107)
[2017-08-13 13:33] LABS: NUCLEATED RED BLOOD CELLS 1 /100 WBC; PLATELET ESTIMATE NORMAL
== END | disposition home or self-care (01) ==
LOC: LAB 09:04
PROVIDERS: ATTEND Internal Medicine Hematology & Oncology
DX: C83.33 Diffuse large B-cell lymphoma, intra-abdominal lymph nodes (principal)
CPT/HCPCS: 36415; 80053; 85025

== ENCOUNTER → 2017-11-19 | Outpatient (CLI) | payer BC ==
[~2017-11-19] MED LIST changes: -METF500T4 PO; +METF500T6 PO
[2017-11-19 07:58] LABS: BASOPHILS % 0.9 % (0.0-2.0); EOSINOPHILS % 3.9 % (0.0-5.0); HEMATOCRIT. 39.7 % (36.0-48.0); HEMOGLOBIN. 13.2 g/dL (12.0-16.0); LYMPHOCYTES % 17.7 % (20.0-50.0); MEAN CORPUSCULAR HEMOGLOBIN 26.7 pg (28.0-32.0); MEAN CORPUSCULAR VOLUME 80.4 fL (81.0-99.0); MEAN PLATELET VOLUME 7.9 fl (7.4-10.4); MONOCYTES % 10.3 % (2.0-8.0); NEUTROPHILS % 67.2 % (40.0-76.0); PLATELET 252 x1000/uL (130-400); RED BLOOD CELL COUNT 4.94 mill/uL (4.2-5.4); RED CELL DISTRIBUTION WIDTH 16.3 % (11.6-14.6)
[2017-11-19 08:40] LABS: CHLORIDE 103 mEq/L (98-107)
== END | disposition home or self-care (01) ==
LOC: LAB 07:07
PROVIDERS: ATTEND Internal Medicine Hematology & Oncology
DX: C83.33 Diffuse large B-cell lymphoma, intra-abdominal lymph nodes (principal)
CPT/HCPCS: 36415; 80053; 83615; 85025

== ENCOUNTER → 2017-12-21 | Outpatient (CLI) | payer BC ==
[2017-12-21 08:22] LABS: T4 FREE 0.98 ng/dL (0.76-1.46)
[2017-12-22 14:18] LABS: *CREATININE RANDOM URINE 118.4 mg/dL (Not Estab.); MICROALBUMIN RANDOM URINE 511.2 ug/mL (Not Estab.)
[2017-12-24 13:11] LABS: VITAMIN D 1-25 DIHYDROXY 40.1 pg/mL (19.9-79.3)
== END | disposition home or self-care (01) ==
LOC: LAB 07:00
PROVIDERS: ATTEND Internal Medicine Endocrinology, Diabetes & Metabolism
DX: E11.9 Type 2 diabetes mellitus without complications (principal); E04.1 Nontoxic single thyroid nodule; E66.9 Obesity, unspecified
CPT/HCPCS: 36415; 80076; 82043; 82570; 82652; 83036; 84439; 84443; 87186